=== PATIENT | female | born 1980 | race Caucasian/White ===

== ENCOUNTER 2017-01-19 20:58 | Emergency (ER) | payer SELFPAY ==
[~2017-01-19 20:58] MED LIST: ANTI-INFLAMMATORY; ANTIDEPRESSANT; AUGMENTIN 875-1 EAC2 PO; AUGMENTIN 875-11 TAB PO; BENTYL20 MG PO; CYCLOBENZAPRIN7.5 MG PO; CYCLOBENZAPRINE5 M1 PO; NAPROSYN500 M1 PO; NORCO 5/325 TAB1 TAB PO; NORFLEX100 MG PO; PREDNISONE10 MG PO; PRILOSEC20 M1 PO; PROZAC20 M3 PO; ULTRAM50 M1 PO; ULTRAM50 MG PO
[2017-01-19] MEDS ORDERED: PRILOSEC OTC20 M1 PO (21:11)
[2017-01-19] MEDS ORDERED: CYCLOBENZAPRINE5 M1 PO (21:11)
[2017-01-19] MEDS ORDERED: TRAMADOL HCL50 M2 PO (21:12)
[2017-01-19] MEDS ORDERED: DICLOFENAC SODI50 M1 PO (21:12)
[2017-01-19 21:39] LABS: BASO % 0.2 % (0-2); EOS % 1.2 % (0-7); EOSINOPHIL ABSOLUTE COUNT 0.1 tho/cmm (0.0-0.7); HGB-HEMOGLOBIN 13.7 gm/dl (12.0-15.5); IMMATURE GRANULOCYTES ABSOLUTE 0.01 tho/cmm (0-0.03); IMMATURE GRANULOCYTES PERCENT 0.1 % (0-0.3); LYMPH % 22.5 % (20-45); LYMPH ABSOLUTE COUNT 2.6 tho/cmm (0.8-4.5); MCH (MEAN CORPUSCULAR HGB) 29.3 pg (28.0-32.0); MCHC MEAN CORPUSCULAR HGB CONC 33.4 % (32.0-36.0); MCV (MEAN CELL VOLUME) 87.6 fl (82.0-96.0); MEAN PLATELET VOLUME 9.4 cmc (9.4-12.4); MONO % 5.1 % (0-12); MONOCYTE ABSOLUTE COUNT 0.6 tho/cmm (0.0-1.2); NEUTROPHIL ABSOLUTE COUNT 8.1 tho/cmm (1.6-8.0); NEUTROPHIL-AUTOMATED 8.1 tho/cmm (1.6-8.0); NEUTROPHILS % 70.9 % (40-80); PLATELET COUNT 332 tho/cmm (150-450); RED BLOOD COUNT 4.68 mil/cmm (4.00-5.20); WHITE BLOOD COUNT 11.4 tho/cmm (4.0-10.0)
[2017-01-19 21:45] LABS: PREGNANCY-SERUM NEGATIVE (NEGATIVE)
[2017-01-19 21:47] LABS: ANION GAP 13 mmol/L (0-20); BLOOD UREA NITROGEN 8 mg/dl (6-24); CALCIUM 8.7 mg/dl (8.5-10.5); CARBON DIOXIDE-VENOUS 26 mmol/L (22-32); CHLORIDE 106 mmol/l (96-110); CREATININE 0.89 mg/dl (0.50-1.10); GLUCOSE 99 mg/dL (70-110); POTASSIUM 4.2 mmol/L (3.7-5.1); SODIUM 141 mmol/L (135-145); eGFR VALUE FOR BLACK >90 mL/Min
[2017-04-04] MEDS ORDERED: MACROBID 100 M100 M1 PO (19:31)
== END 2017-01-19 23:23 ==
LOC: EDMED 20:58
PROVIDERS: Emergency Medicine
DX: R55 Syncope and collapse (principal); F32.9 Major depressive disorder, single episode, unspecified; F17.200 Nicotine dependence, unspecified, uncomplicated
CPT/HCPCS: J1885; J2060